=== PATIENT | female | born 1980 | race Caucasian/White ===

== ENCOUNTER 2016-04-09 20:50 | Emergency (ER) | payer BC ==
[2016-04-09 21:07] LABS: INFLUENZA A NEG (NEG); INFLUENZA B NEG (NEG)
== END 2016-04-09 21:47 | disposition home or self-care (01) ==
LOC: CFTX 20:50
PROVIDERS: Emergency Medicine
DX: B34.9 Viral infection, unspecified (principal); J06.9 Acute upper respiratory infection, unspecified; F17.200 Nicotine dependence, unspecified, uncomplicated
CPT/HCPCS: 87804; 99282